=== PATIENT | male | born 1990 | race Caucasian/White ===

== ENCOUNTER 2023-09-27 21:20 | Inpatient (IN) | payer OTHER, SELFPAY ==
[2023-09-27 19:08] VITALS: BP 144/95
[2023-09-27] MEDS: NSS 1000 IV ×2 (19:57→20:47)
[2023-09-27] MEDS: ZOFRAN 4 MG IV (19:57)
[2023-09-27 20:07] LABS: % Basophils 0.4 % (0-2); % Eosinophils 0.2 % (0-6); % Immature Granulocytes 0.4 % (0-0.5); % Lymphocytes 7.6 % (20.5-51.1); % Monocytes 4.8 % (1.7-9.3); % Neutrophils 86.6 % (42.2-75.2); Absolute Lymphocytes 0.4 10^3/uL (1.2-3.4); Absolute Monocytes 0.3 10^3/uL (0.1-0.6); Absolute Neutrophils 4.6 10^3/uL (1.4-6.5); Hematocrit 36.3 % (39.0-52.0); Hemoglobin 13.4 g/dL (13.0-18.0); Mean Corp Hgb Conc. 36.9 g/dL (33.0-37.0); Mean Corpuscular Hgb 31.2 pg (27.0-31.0); Mean Corpuscular Volume 84.4 fL (80.0-94.0); Mean Platelet Volume 10.2 fL (7.4-10.4); Nucleated Red Blood Cells % 0 % (-); Platelet Count 188 10^3/uL (130-400); Red Cell Dist. Width 11.9 % (11.5-14.5); White Blood Cell Count 5.3 10^3/uL (4.8-10.8)
[2023-09-27 20:22] LABS: COVID-19 Antigen Negative (Negative)
[2023-09-27 20:24] LABS: ALT (SGPT) 25 U/L (0-50); AST (SGOT) 29 U/L (17-59); Albumin 3.8 g/dl (3.5-5.0); Alkaline Phosphatase 48 U/L (38-126); Blood Urea Nitrogen 10 mg/dl (9-20); Calcium 8.2 mg/dl (8.4-10.2); Carbon Dioxide 25 mmol/L (22-30); Chloride 92 mmol/L (98-107); Glucose 124 mg/dl (70-99); Lipase 35 U/L (23-300); Magnesium 1.4 mg/dl (1.6-2.3); Potassium 3.2 mmol/L (3.5-5.1); Sodium 124 mmol/L (135-145); Total Protein 6.5 g/dl (6.3-8.2); eGFR > 60.00
--- NOTE | 2023-09-27 20:47 | ED.GENMED ---
History of Present Illness
General
Chief Complaint: Dehydration Symptoms
Source: patient and spouse
Exam Limitations: none
Time Seen by Provider: 09/27/23 19:34
Nursing documentation reviewed up to this point in time: agreed with
Travel History
Have you had any contact with someone who has COVID-19?: No
Do you have any symptoms of coronavirus? Fever > 100 degrees, chills, cough, shortness of breath, sore throat, loss of taste or smell, muscle aches, or headache?: No
History of Present Illness
History of Present Illness:
33-year-old male with past medical history of POTS who presents to the emergency department for evaluation of dizziness and headache, generalized weakness in the setting of nausea/vomiting/diarrhea yesterday. Patient reports that he had what he
describes as 'food poisoning' yesterday�he says that he ate a dicey roast beef sandwich for lunch and about 2 hours later began with profuse nausea and vomiting and had diarrhea throughout the day. No blood in diarrhea or vomitus. He says he had
about 5 or 6 episodes of vomiting and felt nauseated all day yesterday was able to take p.o. He says that he had diarrhea all day yesterday and diarrhea be continued this morning. Nausea has persisted today but vomiting has improved. He says he
was able to tolerate some soup this evening without vomiting. Unfortunately today he has developed headache and dizziness, generalized weakness and muscle cramping and he was concerned that he could be dehydrated and so he came to the emergency
room. He has not had abdominal pain. He has not had any fevers or chills. He has not had any other complaints or symptoms. Denies prior abdominal surgeries.
Past History
Past History
ED Past Medical History: Other (lymes disease, raynoulds. Ankylosing spondylitis)
ED Past Surgical History: Other
Social History
Tobacco: Non-smoker
Alcohol: None
Personal: Single
Living: with family
Employment: Other
Family History
Family History: Other
Review of Systems
Review of Systems
All Other Systems: ROS reviewed and negative except as documented in HPI and ROS
Constitutional: Reports fatigue; Denies fever or chills
EENT: Denies sore throat or runny nose
Respiratory: Denies cough or trouble breathing
Cardiac: Denies chest pain
ABD/GI: Reports nausea, vomiting and diarrhea; Denies abdominal pain or bloody stools
: Denies flank pain
Musculoskeletal: Reports muscle pain (Muscle cramping); Denies neck pain or back pain
Neurological: Reports dizzy and headache; Denies weakness or numbness
Phy Exam
Physical Exam
Physical Exam:
General: Awake, alert, oriented x3; no acute distress
Head: Normocephalic, atraumatic
Eyes: Conjunctiva normal, EOMI
Throat: Airway intact, mucous membranes dry
Neck: Trachea midline, supple without meningismus
Lungs: Clear to auscultation bilaterally, no wheezing, rales, rhonchi
Heart: Tachycardia with regular rhythm, no murmurs, gallops, or rubs
Abd: Soft, non distended, nontender to deep palpation
Neuro: Cranial nerves grossly intact, speech fluid
Skin: Dry, no rash
Extremities: No edema in extremities, equal pulses in all extremities
Scores
Heart Failure Risk
Heart Failure Risk Score: Not Applicable
Heart Score for Chest Pain Patients
STEMI patient?: Not applicable
Withdrawal Assessment of Alcohol
Withdrawal Assessment Completed?: Not applicable
Course
Orders/Labs/Results
Orders:
Orders
09/27/23 19:35
0.9% Sodium Chloride 1000 ml [Nss] 1,000 ml IV BOLUS
09/27/23 19:41
Ondansetron Injectable [Zofran] 4 mg IV NOW STA
09/27/23 19:52
COVID-19 Antigen Urgent
Source: Nasal Swab
Complete Blood Count/With Diff Urgent
Comprehensive Metabolic Panel Urgent
Lipase Urgent
Magnesium Urgent
Influenza A+B Rapid Molecular Urgent
SKYLAR Source: Nasal Swab
Specimen Description:
09/27/23 20:28
Osmolality, Random Urine Urgent
Urine Sodium Urgent
Magnesium Sulfate 2 Gram/50 ml [Magnesium Sulfate] 2 gram in 50 ml IV NOW
09/27/23 20:29
0.9% Sodium Chloride 1000 ml [Nss] 1,000 ml IV BOLUS
09/27/23 20:37
Potassium Chloride [KCl] 40 meq 0.9% Sodium Chloride 250 ml [Nss] 250 ml IV NOW
09/27/23 20:44
NEPHROLOGY CONSULT Urgent
Consulting Provider: Aparna Cho
Was physician already notified: Yes
Abnormal Lab Results
09/27/23
19:52
RBC 4.30 L 10^6/uL
(4.70-6.10)
Hct 36.3 L %
(39.0-52.0)
MCH 31.2 H pg
(27.0-31.0)
Absolute Lymphs (auto) 0.4 L 10^3/uL
(1.2-3.4)
Neutrophils % 86.6 H %
(42.2-75.2)
Lymphocytes % 7.6 L %
(20.5-51.1)
Sodium 124 L mmol/L
(135-145)
Potassium 3.2 L mmol/L
(3.5-5.1)
Chloride 92 L mmol/L
(98-107)
Glucose 124 H mg/dl
(70-99)
Calcium 8.2 L mg/dl
(8.4-10.2)
Magnesium 1.4 L mg/dl
(1.6-2.3)
09/27/23 19:52
09/27/23 19:52
Vital Signs
Initial and Last Documented VS:
Initial Vital Signs
Temp Pulse Resp BP Pulse Ox
37.9 C 129 16 144/95 98
09/27/23 19:08 09/27/23 19:08 09/27/23 19:08 09/27/23 19:08 09/27/23 19:08
Last Documented Vital Signs
Temp Pulse Resp BP Pulse Ox
37.9 C 97 17 144/95 98
09/27/23 19:08 09/27/23 20:15 09/27/23 20:15 09/27/23 19:08 09/27/23 19:08
MDM/Problems Addressed
Differential Diagnosis Includes:
Nausea/vomiting/diarrhea: Foodborne illness/food poisoning, gastroenteritis
Headache, dizziness: Dehydration, electrolyte derangement, anemia
MDM/Problems Addressed:
33-year-old male presents for evaluation of dizziness, weakness, headache, muscle cramping in the setting of nausea/vomiting/diarrhea over the past 24 hours. GI symptoms have improved although nausea and some slight loose stools persisted this
morning. He arrived was tachycardic otherwise normal vitals. Exam as above. He does appear dehydrated. Plan to place an IV check labs including a CBC and a CMP. Will check lipase. Viral swabs. Will start IV fluids and provide IV Zofran. Will
reassess after the above.
Labs reviewed: CBC shows no clinically significant abnormalities. CMP shows significant hyponatremia with a sodium of 124 with essentially normal glucose. He has hypokalemia with a potassium of 3.2. Hypomagnesemia with a magnesium of 1.4. Will
replete potassium and magnesium IV. Continue with fluid resuscitation suspect likely hypovolemic hyponatremia. Added urine sodium and osmolality. Discussed case with nephrology agreed with normal saline resuscitation given clear signs of
hypovolemia and clear precipitating GI illness. Will admit for trending of electrolytes and hydration. Discussed with hospitalist for admission.
*Pulse Oximetry
Patient hypoxic: no
*Critical Care Note
Total Time (30-74mins, 75-104mins- exclusive of procedures): Not Applicable
Data Reviewed
Source: patient and spouse
Further Testing Considered But Not Given:
Considered CT of the abdomen and pelvis but with no abdominal pain and with improved GI symptoms today, benign abdominal exam there is no clear indication for emergent abdominal imaging
Patient Management
Discussion with other providers: Hospitalist (Discussed with hospitalist) and Network Professional (Discussed with nephrology)
Escalation/DeEscalation of care consider admission/obs:
Admission indicated
ED Attending Note
-
Portions of this chart may have been created with voice recognition software.� Occasional wrong word or��sound alike� substitutions may have occurred due to the inherent limitations of voice recognition software.
Discharge Plan
Departure
Patient Disposition: Admit
Date of Disposition: 09/27/23
Time of Disposition: 20:55
Admit to doctor: Reed
Presentation/result/management discussed w/ accepting MD/DO: Hospitalist
Discharge Problem:
Acute dehydration, Acute hyponatremia, Acute hypokalemia
Prescriptions:
No Action
ondansetron 4 MG tablet,disintegrating
4 mg PO TIDPRN PRN (Reason: nausea/vomiting) Qty: 10 0RF
Referrals:
Dylan Linares MD [Family Provider] -
Interventions
Interventions:
*Risk Screen - Suicide Last Done: 09/27/23 19:08
*General Assessment Last Done: 09/27/23 19:08
*Neglect/Abuse Screening Last Done: 09/27/23 19:08
ED- Cardiac Assessment Last Done: 09/27/23 20:17
ED- Neurological Assessment Last Done: 09/27/23 20:17
ED- Pulmonary Assessment Last Done: 09/27/23 20:17
Discharge Date and Time
Print Language: QATARI
[2023-09-27] MEDS: MAGNESIUM SULFATE 50 IV (20:48)
[2023-09-27 20:51] VITALS: BP 111/58
--- NOTE | 2023-09-27 20:51 | HPS.HSE ---
Family Physician
-
Family Physician: Dylan Linares
Chief Complaint
-
n/v/d
History of Present Illness
33-year-old male with past medical history of POTS who presents to the emergency department for evaluation of generalized weakness ,n,v,d. Patient reports that he had what he describes as 'food poisoning' yesterday�he says that he ate a dicey roast
beef sandwich for lunch and about 2 hours later began with profuse nausea and vomiting and had diarrhea throughout the day. No blood in diarrhea or vomitus. he had multiple episodes of diarrhea until night. complained of diarrhea until noon today.
denied abdominal pain. patient stated poor appetite. denied fever, chills,ONOFRE. denied chest pain, sob.d denied dysuria or hematuria.
upon arrival noted electrolyte imbalance. admitting for further management.
Medical History
Past Medical History
Past Medical History: Reports Other
Additional Past Medical History:
POTS
lyme disease
Raynaud disease
POTS
ankylosis spondylitis.
Past Surgical History: Reports None
Social History
Tobacco: Non-smoker
Alcohol: Occasional
Drug: None
Living: With Family
Employment: Employed
Family History
Family History: Not pertinent
Allergies / Home Medications
Allergies reflects when Allergies were last updated in [facility].
Home Medications with original date entered in [facility]
Allergy/Medication List:
Allergies
Allergy/AdvReac Type Severity Reaction Status Date / Time
No Known Allergies Allergy Verified 12/08/22 17:35
Home Medications
No Meds [No Current Medications] 09/27/23
Review of Systems
-
Constitutional: Reports No Symptoms
EENT: Reports No Symptoms
Respiratory: Reports No Symptoms
Cardiac: Reports No Symptoms
Abdomen/GI: Reports Nausea, Vomiting and Diarrhea
: Reports No Symptoms
Musculoskeletal: Reports No Symptoms
Skin: Reports No Symptoms
Neurological: Reports No Symptoms
Endocrine: Reports No Symptoms
Hematologic/Lymphatic: Reports No Symptoms
Psych: Reports No Symptoms
Physical Exam
Vital Signs
Vital Signs
Temp Pulse Resp BP Pulse Ox
100.3 F 97 17 144/95 98
09/27/23 19:08 09/27/23 20:15 09/27/23 20:15 09/27/23 19:08 09/27/23 19:08
Physical Exam
General: Well Developed, Well Nourished and No Apparent Distress
HEENT: NormoCephalic, Moist mucous membranes and Atraumatic
Respiratory: Clear
Cardiac: S1/S2 and Regular Rhythm; No Murmur or Rub
GI: Soft, Non Tender, Non Distended and Normal Bowel Sounds; No Organomegaly
Rectal: Deferred by Provider
Musculoskeletal: No Clubbing, No Cyanosis and No Edema
Skin: No Rash
Neuro: AO x 3 and Nonfocal/grossly intact
Psych: Calm
Laboratory Results
-
09/27/23 19:52
09/27/23 19:52
Laboratory Results
Total Bilirubin 1.0 mg/dl (0.2-1.3) 09/27/23 19:52
AST 29 U/L (17-59) 09/27/23 19:52
ALT 25 U/L (0-50) 09/27/23 19:52
Alkaline Phosphatase 48 U/L (38-126) 09/27/23 19:52
Lipase 35 U/L (23-300) 09/27/23 19:52
Data Reviewed
-
Lab Data: Labs Reviewed by me
Impression/Plan
-
#n/v/d likely from food poisoning
-n/v/d improved
-stool for cultures ordered
-obtain norovirus
-clear liquid diet, advance as tolerated
#electrolyte imbalance from n/v/d
-na 124,k 3.2, mag 1.4
-normal saline bolus in ER
-supplemented with kcl and mag
-monitor BMP in am
-neprho consulted
#hxt of POTS
#hxt of ankylosing spondylitis
#DVT prophylaxis
-scd
#CODE status
-full code
[2023-09-27 21:00] VITALS: BP 110/83
--- NOTE | 2023-09-27 21:08 | W.PN.UPDATE ---
Update Note
Progress Note Update
This is an addendum to the H&P written by EFRAIN Clemens on 09/27/2023.
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 33-year-old male past medical history of pots disease, Raynaud's, ankylosing spondylitis, presenting with severe vomiting and diarrhea yesterday after having roast beef sandwich resulting in many
sick people. Vomiting and diarrhea have improved. Gastroenteritis. Afebrile. Labs show hyponatremia, hypokalemia and hypomagnesemia. IV fluids. Check stool culture, norovirus. Replete potassium and magnesium. Clear liquid diet. ER consulted
nephrology.
[2023-09-27 22:00] VITALS: BP 111/76
[2023-09-27 23:26] VITALS: BP 133/72; BMI 23.1
[2023-09-27] MEDS: TYLENOL 650 MG PO (23:27)
[2023-09-27 23:28] LABS: Osmolality Urine 220 mOsm/kg (300-900)
[2023-09-27 23:43] LABS: Urine Sodium 30 mmol/L (30-90)
--- NOTE | 2023-09-27 23:59 | PTCARENOTE ---
Patient arrived from the ED via stretcher at approximately 2300. Patient ambulated from stretcher to bed x1 assist due to patient being connected to IV fluids - gait steady. AAOx3. VSS as documented. Assessment as documented. Patient oriented to
room. Bed in lowest position. Call saleh within reach.
[2023-09-28] MEDS: NSS 1000 IV ×2 (00:18→07:17)
[2023-09-28] MEDS: KCL 270 MEQ IV (02:03)
[2023-09-28 06:09] LABS: Hematocrit 33.4 % (39.0-52.0); Hemoglobin 11.8 g/dL (13.0-18.0); Mean Corp Hgb Conc. 35.3 g/dL (33.0-37.0); Mean Corpuscular Hgb 30.9 pg (27.0-31.0); Mean Corpuscular Volume 87.4 fL (80.0-94.0); Mean Platelet Volume 10.4 fL (7.4-10.4); Platelet Count 183 10^3/uL (130-400); Red Blood Cell Count 3.82 10^6/uL (4.70-6.10); White Blood Cell Count 4.1 10^3/uL (4.8-10.8)
[2023-09-28 06:37] LABS: Blood Urea Nitrogen 6 mg/dl (9-20); Calcium 8.2 mg/dl (8.4-10.2); Carbon Dioxide 25 mmol/L (22-30); Chloride 102 mmol/L (98-107); Estimated Creatinine Clearance > 125 ml/min; Glucose 97 mg/dl (70-99); Magnesium 2.4 mg/dl (1.6-2.3); Potassium 4.5 mmol/L (3.5-5.1); Sodium 131 mmol/L (135-145); eGFR > 60.00
[2023-09-28 07:25] VITALS: BP 96/57
--- NOTE | 2023-09-28 09:06 | W.PN.HOSP.TC ---
Today's Communication/Plan
-
Increase diet this morning if tolerates full liquid to solid lunch can be discharged
Assessment / Plan
Assessment / Plan
33-year-old male with past medical history of POTS who presents to the emergency department for evaluation of generalized weakness ,n,v,d. Patient reports that he had what he describes as 'food poisoning' yesterday�he says that he ate a dicey roast
beef sandwich for lunch and about 2 hours later began with profuse nausea and vomiting and had diarrhea throughout the day. No blood in diarrhea or vomitus. he had multiple episodes of diarrhea until night. complained of diarrhea until noon today.
denied abdominal pain. patient stated poor appetite. denied fever, chills,ONOFRE. denied chest pain, sob.d denied dysuria or hematuria.
upon arrival noted electrolyte imbalance. admitting for further management
n/v/d likely from food poisoning
-n/v/d improved
-stool for cultures ordered/but no stools since arrival
-obtain norovirus
-clear liquid diet, advance as tolerated
#electrolyte imbalance from n/v/d
-na 124,k 3.2, mag 1.4/all now improved
-normal saline bolus in ER
-supplemented with kcl and mag
-monitor BMP in am/sodium up to 131
-neprho consulted/believe we can cancel nephrology input
#hxt of POTS
#hxt of ankylosing spondylitis
#DVT prophylaxis
-scd
#CODE status
-full code
Anticipated Discharge: Today
Subjective/Interval History
-
Date of Service: September 28, 2023
Feeling much better denies any abdominal pain no further diarrhea no further nausea no emesis overnight. Wants to try and advance his diet from clears.
Objective Data
-
Labs:
Laboratory Results
09/28/23
05:23
WBC 4.1 L
Hgb 11.8 L
Hct 33.4 L
Plt Count 183
Sodium 131 L
Potassium 4.5 D
Chloride 102
Carbon Dioxide 25
BUN 6 L
Creatinine 0.7
Glucose 97
Calcium 8.2 L
Vital Signs:
Vital Signs
Temp Pulse Resp BP Pulse Ox
97.5 F 79 16 96/57 98
09/28/23 07:25 09/28/23 07:25 09/28/23 07:25 09/28/23 07:25 09/28/23 07:25
I&O
09/27/23 09/28/23 09/29/23
06:59 06:59 06:59
Intake Total 380 / 380
Balance 380 / 380
Review of Systems
-
All other systems: Not reviewed unless documented
Physical Exam
-
General: Well Developed
HEENT: Normocephalic
Respiratory: Clear to Auscultation
Cardiac: Regular Rhythm
GI: Soft, Nontender and Normal Bowel Sounds
Data Reviewed
-
Total Time Spent with Patient (in minutes): 45
Labs: Labs Reviewed by me (Sodium up to 131 urine osmole depressed magnesium and calcium now corrected)
--- NOTE | 2023-09-28 11:39 | W.DS.TRANS ---
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
-
Discharge Instructions:
Discharge Diagnosis/Procedures Acute gastroenteritis
Diet Regular
Activity No restrictions
Driving Restrictions As prior to admission
Instructions:
Stand-Alone Forms:
Changes to Home Medications: No
Discharge Medications:
DC Medications w/original date entered in [facility]
No Meds [No Current Medications] 09/27/23
Home Medication Changes
Pending Results: No
Total time spent discharging patient (in min): 32
--- NOTE | 2023-09-28 12:14 | W.DCSUMMARY ---
Discharge Summary
Discharge Data
Date of Admission: 09/27/23
Date of Discharge: 09/28/23
-
Pending Results: No
Hospital Course
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 Vomiting and diarrhea have improved. Gastroenteritis. Afebrile. Labs show hyponatremia, hypokalemia and hypomagnesemia. IV fluids. Check stool culture, norovirus. Replete potassium and magnesium. Clear liquid diet. ER consulted
nephrology.
Patient had an IV infusion of saline overnight and urine osmolality was markedly depressed replenished and repleted hypocalcemia hypomagnesemia with correction of sodium 124-131 overnight and the patient has had no longer any nausea vomiting or
diarrheal stools we were unable to collect any stools for culture unclear whether a norovirus PCR was ordered
He is tolerating a full liquid diet and will be graduated to a regular diet prior to his discharge he is stable hemodynamically stable can be discharged adequate hydration to be continued
Discharge Plan
-
Patient Disposition: Home (Routine Discharge)
Discharge Diagnosis/Procedures: Acute gastroenteritis
Diet: Regular
Activity: No restrictions
Driving Restrictions: As prior to admission
Referrals:
Dylan Linares MD [Family Provider] -
Prescriptions:
No Action
No Current Medications
0
Discharge Orders:
Discharge Patient (As Directed); Ordered 09/28/23
Ordered By: Magan Bui
Discharge Date and Time
Print Language: ROMANIAN
[2023-09-28 14:13] VITALS: BP 115/80
--- NOTE | 2023-09-28 15:11 | CM ---
CM following re: d/c planning.
Pt d/c prior to CM assessment.
Per chart review, pt independent with mobility and ADLs.
No d/c needs noted.
CM spoke with RN, confirmed no needs.
== END 2023-09-28 15:58 | disposition home or self-care (01) | DRG 392 ==
LOC: 2 NORTH 21:20
PROVIDERS: Registered Nurse; ADMITTING PHYSICIAN Hospitalist; ATTENDING PHYSICIAN Internal Medicine; EMERGENCY PHYSICIAN Emergency Medicine; FAMILY PHYSICIAN Internal Medicine
DX: A05.9 Bacterial foodborne intoxication, unspecified (principal); E87.1 Hypo-osmolality and hyponatremia; K52.9 Noninfective gastroenteritis and colitis, unspecified; E86.0 Dehydration; E87.6 Hypokalemia; G90.A Postural orthostatic tachycardia syndrome [POTS]; E83.42 Hypomagnesemia; Z11.52 Encounter for screening for COVID-19
CPT/HCPCS: 80048; 80053; 83690; 83735; 83935; 84300; 85025; 85027; 87502; 87811; 93005; 96365; 96366; 96375; 99285

== ENCOUNTER 2024-09-20 20:28 | Emergency (ER) | payer OTHER, SELFPAY ==
[2024-09-20 20:33] VITALS: BP 161/100
[2024-09-20 21:01] VITALS: BP 148/83
--- NOTE | 2024-09-20 21:11 | ED.GENMED ---
History of Present Illness
General
Chief Complaint: Back Pain
Source: patient
Exam Limitations: none
Time Seen by Provider: 09/20/24 20:46
Nursing documentation reviewed up to this point in time: agreed with
History of Present Illness
History of Present Illness:
Patient is a 34-year-old male with history of POTS, ankylosing spondylitis presenting to the emergency department for evaluation of acute onset upper back pain. Patient states he was going for a walk tonight around 7:30 PM when he had acute onset
pain in his mid/upper back. He describes it as severe cramping. He reports associated nausea and mild lightheadedness. No notable chest pain or shortness of breath. He denies any recent fever, cough, or inciting event. At its worst�patient
states it was a 6/10 although has decreased slightly.
Patient reports a similar episode of symptoms occurring Saturday night while he was at work. At that time�it was acute onset upper back pain, as well which persisted for about 2 hours and resolved.
He denies any clear exertional or pleuritic symptoms. No recent travel or surgeries. No lower extremity pain or swelling. No personal or family history of blood clots or clotting disorders.
Patient does report a family history of early CAD.
Past History
Past History
ED Past Medical History: Other (lymes disease, raynoulds. Ankylosing spondylitis)
ED Past Surgical History: Other
Social History
Tobacco: Non-smoker
Alcohol: None
Personal: Single
Living: with family
Employment: Other
Family History
Family History: Other
Review of Systems
Review of Systems
Allergies reviewed?: Yes
All Other Systems: ROS reviewed and negative except as documented in HPI and ROS
Phy Exam
Physical Exam
Physical Exam:
Vitals: Hypertensive and tachycardic on arrival. Otherwise vital signs stable.
General: Patient is anxious appearing
Skin: Warm and dry, no rashes or lesions
Head: Normocephalic, atraumatic
Eyes: Sclera nonicteric. EOMs intact. No nystagmus.
Throat: Protecting airway
Neck: Normal ROM, no cervical spine tenderness, no meningismus. No JVD
Cardiac: Regular rate and rhythm, no murmurs. No reproducible chest wall tenderness. 2+ radial pulses bilaterally
Pulm: No respiratory distress. Lungs clear bilaterally
Abdomen: Abdomen soft and nontender.
Back: No cervical spine or midline spinal tenderness. No reproducible upper back tenderness. No ecchymoses or rash.
Extremities: No evidence of cyanosis or edema.
Neuro: AAOx3. Grossly intact.
Psychiatric: Normal affect.
Course
Orders/Labs/Results
Orders:
Orders
09/20/24 20:37
Electrocardiogram (*1) Urgent
Reason for Study: Chest Pain
EKG- Treatment ONCE
09/20/24 21:00
CT Chest/abd/pelvis Angio W/wo Urgent
Comment:
Reason For Exam: Upper back pain
Ondansetron Injectable [Zofran] 4 mg IV NOW STA
09/20/24 21:04
0.9% Sodium Chloride 1000 ml [Nss] 1,000 ml IV BOLUS
09/20/24 21:10
Complete Blood Count/With Diff Urgent
Comprehensive Metabolic Panel Urgent
Troponin I Urgent
09/21/24 00:10
Electrocardiogram (*1) Urgent
Reason for Study: Chest Pain
EKG- Treatment ONCE
09/21/24 00:19
Troponin I Urgent
Abnormal Lab Results
09/20/24
21:10
RBC 4.46 L 10^6/uL
(4.70-6.10)
Hct 38.9 L %
(39.0-52.0)
Potassium 3.3 L mmol/L
(3.5-5.1)
Glucose 140 H mg/dl
(70-99)
09/20/24 21:10
09/20/24 21:10
Vital Signs
Initial and Last Documented VS:
Initial Vital Signs
Temp Pulse Resp BP Pulse Ox
97.9 F 132 20 161/100 100
09/20/24 20:33 09/20/24 20:33 09/20/24 20:33 09/20/24 20:33 09/20/24 20:33
Last Documented Vital Signs
Temp Pulse Resp BP Pulse Ox
97.9 F 81 13 125/92 100
09/20/24 20:33 09/21/24 01:15 09/21/24 01:15 09/21/24 01:00 09/21/24 01:15
MDM/Problems Addressed
Differential Diagnosis Includes:
Not limited to: Muscular strain, aortic dissection, pulmonary embolism, pneumothorax, acute coronary syndrome, etc.
MDM/Problems Addressed:
34-year-old male presenting with acute onset upper back pain associated with nausea. No associated exertional chest pain or shortness of breath. Patient initially hypertensive and tachycardic on arrival. Physical exam as above. Given acute onset
back pain associated with hypertension and tachycardia�patient was sent to CT scan for dissection study. Basic labs, troponin were sent off. Patient declines any analgesia.
Update: CTA chest/abdomen/pelvis negative for any acute disease. No evidence of pulmonary embolism. Labs reviewed. CBC and CMP without clinically significant abnormalities. EKG obtained in triage shows sinus tachycardia without acute ischemic
changes. Initial troponin negative although 0.015. Will plan to trend troponin and repeat EKG. His vital signs have began to normalize without intervention since arriving to the emergency department.
Update: On reassessment�patient reports symptoms improved. He denies any lingering back pain. His vital signs have normalized including blood pressure and heart rate. Repeat troponin undetectable. There was some nonspecific ST changes in
anterior leads which was reviewed with attending. His symptoms have resolved. He remains very well-appearing and comfortable. Workup in ED unremarkable including serial troponins negative x 2 with nonischemic EKGs. No evidence of acute
cardio/pulmonary process on CT imaging. Unsure exact etiology of symptoms today�although low suspicion for acute cardiac emergency. Possible musculoskeletal in origin. Patient feels comfortable with discharge home at this point. Advised very
strict return precautions, cardiology follow-up. Patient ambulating in the department without difficulty.
Chronic conditions affecting care:
POTS
Acute Exacerbation and/or Progression of Chronic Illness:
N/A
*Radiology
Radiology exam reviewed: radiology read reviewed
*Pulse Oximetry
Patient hypoxic: no
*EKG
Interpreted by ED Provider?: Yes
EKG Intrepretation Date: 09/20/24
Interpretation: abnormal
Comparison EKG: changes noted
Heart Rate: 119
Rate: tachycardiac
Rhythm: sinus
[place]: normal axis
Interval: normal QT interval
QRS Pattern: normal QRS
Ischemia: no ischemia
*Deck Lid Fitter Interpretation
Rate: tachycardiac
Interpretation: abnormal
Heart Rate: 115
Rhythm: sinus
*Critical Care Note
Total Time (30-74mins, 75-104mins- exclusive of procedures): Not Applicable
Patient Management
Discussion with other providers: Other (Case discussed with attending physician)
ED Attending Note
-
Portions of this chart may have been created with voice recognition software.� Occasional wrong word or��sound alike� substitutions may have occurred due to the inherent limitations of voice recognition software.
Discharge Plan
Departure
Patient Disposition: Home (Routine Discharge)
Date of Disposition: 09/21/24
Time of Disposition: 01:11
Patient with high blood pressure during this ER visit?: Yes
Condition: Good
Covid-19: Not Applicable
Discharge Problem:
Upper back pain
Instructions: Upper Back Pain (DC), BLOOD PRESSURE
Prescriptions:
No Action
No Current Medications
0
Referrals:
aDniele Lindsey MD [Active] - Next open appointment
Dylan Linares MD [Family Provider] - Follow up in 2-3 days
Activity Restrictions/Additional Instructions:
RETURN TO THE EMERGENCY DEPARTMENT FOR ANY CHEST PAIN, SHORTNESS OF BREATH, UPPER BACK PAIN, LIGHTHEADEDNESS/DIZZINESS, EPISODES OF FAINTING, WORSENING IN CURRENT SYMPTOMS, OR ANY OTHER CONCERNS
- As discussed�we are unsure the exact cause of your back pain today. You had lab work, CTA chest/abdomen/pelvis, and EKG was performed which showed no acute abnormalities. Your potassium was slightly low. You should eat potassium rich foods and
follow-up with primary care to ensure this is trending up.
- Stay well-hydrated.
- You can take Tylenol and/or Motrin as needed for pain.
- Follow-up with primary care or cardiology for further evaluation/management as needed. Information for academic manager was provided for you above.
Monitor your symptoms closely and return to the emergency department with any acute worsening/new symptoms or any other concerns
Interventions
Interventions:
*Risk Screen - Suicide Last Done: 09/20/24 20:33
*General Assessment Last Done: 09/20/24 20:33
*Neglect/Abuse Screening Last Done: 09/20/24 20:33
*ED- Fall Risk Assessment Last Done: 09/20/24 21:25
*ED COVID-19 Vaccine History Last Done: 09/20/24 23:23
*Nursing Disposition Last Done: 09/21/24 01:24
ED-Musculoskeletal Assessment Last Done: 09/20/24 21:25
Discharge Date and Time
Discharge Date/Time: 09/21/24 01:34
Print Language: [place]ET[place]
[2024-09-20] MEDS: ZOFRAN 4 MG IV (21:15)
[2024-09-20] MEDS: NSS 1000 IV (21:15)
[2024-09-20 21:18] LABS: % Basophils 0.8 % (0-2); % Eosinophils 1.7 % (0-6); % Immature Granulocytes 0.2 % (0-0.5); % Monocytes 7.8 % (1.7-9.3); % Neutrophils 52.5 % (42.2-75.2); Absolute Eosinophils 0.1 10^3/uL (0-0.7); Absolute Lymphocytes 1.9 10^3/uL (1.2-3.4); Absolute Monocytes 0.4 10^3/uL (0.1-0.6); Absolute Neutrophils 2.7 10^3/uL (1.4-6.5); Hematocrit 38.9 % (39.0-52.0); Hemoglobin 13.7 g/dL (13.0-18.0); Mean Corp Hgb Conc. 35.2 g/dL (33.0-37.0); Mean Corpuscular Hgb 30.7 pg (27.0-31.0); Mean Corpuscular Volume 87.2 fL (80.0-94.0); Nucleated Red Blood Cells % 0 % (-); Platelet Count 247 10^3/uL (130-400); Red Blood Cell Count 4.46 10^6/uL (4.70-6.10); Red Cell Dist. Width 12.2 % (11.5-14.5); White Blood Cell Count 5.2 10^3/uL (4.8-10.8)
[2024-09-20 21:25] VITALS: BMI 24.2
[2024-09-20 21:40] LABS: ALT (SGPT) 18 U/L (0-50); AST (SGOT) 22 U/L (17-59); Alkaline Phosphatase 58 U/L (38-126); Blood Urea Nitrogen 13 mg/dl (9-20); Calcium 9.5 mg/dl (8.4-10.2); Carbon Dioxide 24 mmol/L (22-30); Chloride 103 mmol/L (98-107); Estimated Creatinine Clearance > 125 ml/min; Glucose 140 mg/dl (70-99); Potassium 3.3 mmol/L (3.5-5.1); Sodium 138 mmol/L (135-145); Total Bilirubin 0.5 mg/dl (0.2-1.3); Total Protein 7.6 g/dl (6.3-8.2); Troponin I 0.015 ng/ml; eGFR > 60.00
[2024-09-20 22:00] VITALS: BP 131/84
[2024-09-20 23:00] VITALS: BP 124/87
[2024-09-21] VITALS: BP 124/82
[2024-09-21 00:50] LABS: Troponin I < 0.012 ng/ml
[2024-09-21 01:00] VITALS: BP 125/92
== END 2024-09-21 01:34 | disposition home or self-care (01) ==
LOC: EMR 20:28
PROVIDERS: Physician Assistant; EMERGENCY PHYSICIAN Student in an Organized Health Care Education/Training Program; FAMILY PHYSICIAN Internal Medicine
DX: M54.6 Pain in thoracic spine (principal); R42 Dizziness and giddiness; R11.0 Nausea; R00.0 Tachycardia, unspecified; R03.0 Elevated blood-pressure reading, without diagnosis of hypertension; G90.A Postural orthostatic tachycardia syndrome [POTS]; M45.9 Ankylosing spondylitis of unspecified sites in spine; Z82.49 Family history of ischemic heart disease and other diseases of the circulatory system
CPT/HCPCS: 99285; 96374; 71275; 74174; 80053; 84484; 85025; 93005; Q9967